=== PATIENT | female | born 1970 | race Caucasian/White ===

== ENCOUNTER 2016-11-19 19:11 | Emergency (ER) | payer OTHER ==
[~2016-11-19] VITALS: Wt 83.2 kg
[~2016-11-19 19:11] MED LIST: ATOR20TA38 PO; JANUMET
--- NOTE | 2016-11-19 21:46 | ERD ---
ER Documentation Chief Complaint Date/Time DATE: 11/19/16 TIME: 21:43 Chief Complaint r. knee pain s/p trip and fall HPI This a 46-year-old female who presents to the emergency department today complaining of right knee pain after slipping and falling down the stairs earlier this morning. Patient states that she has taken 2 Tylenol. States that she has hurt her knee in the past. States she has pain with walking. Denies any fevers or chills ROS All systems reviewed and are negative except as per history of present illness. Medications Home Meds Active Scripts Naproxen* (Naprosyn*) 500 Mg Tablet, 500 MG PO BID Y for PAIN AND/OR INFLAMMATION, #30 TAB Prov:RUMA TELLEZ PA-C 11/19/16 Hydrocodone/Acetaminophen ([place] 5-325 Tablet) 1 Each Tablet, 1 TAB PO Q6H Y for PAIN, #12 TAB Prov:RUMA TELLEZ PA-C 11/19/16 Reported Medications [Janumet] No Conflict Check 06/05/16 Atorvastatin Calcium* (Atorvastatin Calcium*) 20 Mg Tablet, 20 MG PO DAILY 09/09/13 Allergies Allergies: Coded Allergies: No Known Allergy (Verified , 09/12/10) Uncoded Allergies: NKDA (Allergy, Mild, 09/11/10) PMhx/Soc Medical and Surgical Hx: pt denies Surgical Hx History of Surgery: No Anesthesia Reaction: No Hx Neurological Disorder: No Hx Respiratory Disorders: No Hx Cardiac Disorders: No Hx Psychiatric Problems: No Hx Miscellaneous Medical Probl: Yes (DM II) Hx Alcohol Use: No Hx Substance Use: No Hx Tobacco Use: No Smoking Status: Never smoker Physical Exam Vitals Vital Signs Date Time Temp Pulse Resp B/P Pulse Ox O2 Delivery O2 Flow Rate FiO2 11/19/16 19:42 99.6 103 20 197/88 100 Physical Exam Const: No acute distress. Ambulating with mother's walker Head: Atraumatic Eyes: Normal Conjunctiva ENT: Normal External Ears, Nose and Mouth. Neck: Full range of motion..~ No meningismus. Resp: Clear to auscultation bilaterally Cardio: Regular rate and rhythm, no murmurs Skin: No petechiae or rashes MSK right knee with no obvious deformity. No effusion. No ecchymosis. Diffusely tender to palpation anterior and posterior aspects. Pain with range of motion from extension into flexion. Pulses 2+. Distal neurovascularly intact. Neur: Awake and alert Psych: Normal Mood and Affect Results 24 hrs Current Medications Medications (Trade) Dose Ordered Sig/Blayne Route PRN Reason Start Time Stop Time Status Last Admin Dose Admin Acetaminophen/ Hydrocodone Bitart ([place] (5/325)) 1 tab ONCE ONCE PO 11/19/16 22:00 11/19/16 22:01 DC 11/19/16 21:56 DIAGNOSTIC IMAGING REPORT Patient: EMMY KLEIN : 1970 Age: 46 Sex: F MR #: [id number] DOS: 11/19/16 0000 Ordering MD: RUMA TELLEZ PA-C Location: [facility] Room/Bed: PROCEDURE: CR Right Knee CLINICAL INDICATION: Pain TECHNIQUE: An AP, lateral, and an oblique radiographs were submitted. COMPARISON: None FINDINGS: Osseous Structures: The osseous elements appear well mineralized and intact. Join Spaces: The joint spaces are well maintained. There is a moderate joint effusion within the suprapatellar bursa.. Soft Tissues: The soft tissues appear unremarkable. IMPRESSION: Moderate joint effusion. Physician Giulia Date Time Electronically viewed and signed by Physician Giulia on 11/19/2016 22:25 RH/ CC: RUMA TELLEZ PA-C Procedures/MDM This a 46-year-old female who presents to the emergency department today complaining of right knee pain after mechanical fall when she slipped and fell down the stairs. Given that there was trauma patient is having pain with ambulation as well as range of motion I did obtain images. Per the radiology report images of the right knee show that the osseous elements appear well mineralized intact. Joint spaces are well-maintained. There is a moderate joint effusion within the suprapatellar bursa. Soft tissues appear unremarkable. Patient symptoms at this time most consistent with strain versus sprain versus contusion. There is no fracture dislocation. Patient is afebrile and otherwise well-appearing. There is no erythema or warmth and have low suspicion for septic joint or gout. I explained to the patient that she may need further evaluation by a injection specialist. Patient was given [place] here in the emergency department and pain improved. I will give her prescription for [place], Naprosyn for home. Patient was also given a knee immobilizer and crutches to help ambulate. She does not normally ambulate with a walker however she borrowed from her mother who just had replacement surgery At this time the patient is stable for discharge and outpatient management. Patient should follow up with their PCP in the next 1-2 days. They may return to the emergency department sooner for any persistent or worsening of symptoms. Patient understood and agreed with the plan. Departure Diagnosis: Primary Impression: Knee injury Encounter type: initial encounter Laterality: right Qualified Code: S89.91XA - Knee injury, right, initial encounter Condition: Fair RUMA TELLEZ PA-C Nov 19, 2016 21:46
[2016-11-19] MEDS ORDERED: HYDROCODONE/APAP (5/325) TAB PO ONE (22:00)
--- NOTE | 2016-11-19 22:26 | RADRPT ---
PROCEDURE: CR Right Knee CLINICAL INDICATION: Pain TECHNIQUE: An AP, lateral, and an oblique radiographs were submitted. COMPARISON: None FINDINGS: Osseous Structures: The osseous elements appear well mineralized and intact. Join Spaces: The joint spaces are well maintained. There is a moderate joint effusion within the sup rapatellar bursa.. Soft Tissues: The soft tissues appear unremarkable. IMPRESSION: Moderate joint effusion. Physician Giulia Date Time Electronically viewed and signed by Carline Diaz Physician on 11/19/2016 22:25 /
[2016-11-19] MEDS ORDERED: NAPR-260 PO (22:46)
[2016-11-19] MEDS ORDERED: HYDR-906 PO (22:46)
[2016-11-19 22:58] VITALS: BP 142/71; PULSE 81; RESP 20; TEMP 99
== END 2016-11-19 22:59 | disposition home or self-care (01) ==
LOC: FTE 19:11
DX: S89.91XA Unspecified injury of right lower leg, initial encounter (principal); E11.9 Type 2 diabetes mellitus without complications; W10.9XXA Fall (on) (from) unspecified stairs and steps, initial encounter; Y92.9 Unspecified place or not applicable; Z79.84 Long term (current) use of oral hypoglycemic drugs
CPT/HCPCS: 29505; 73562; Z7502; Z7610

== ENCOUNTER → 2016-12-25 | Outpatient (CLI) | payer OTHER ==
[~2016-12-25] MED LIST changes: +HYDR-906 PO; +NAPR-260 PO
--- NOTE | 2016-12-25 09:30 | RADRPT ---
PROCEDURE: XR right knee CLINICAL INDICATION: Knee pain TECHNIQUE: AP weightbearing, PA weightbearing, lateral weightbearing and sunrise views are availab le for review. COMPARISON: 11/19/2016 FINDINGS: There is mild osteoarthrosis involving the patellofemoral compartment. This is associated with minim al osteophytosis. There is otherwise normal mineralization, architecture and alignment. No fractures are identified. No osseous lesions are identified. The soft tissues are unremarkable. The previously described sup rapatellar joint effusion has resolved. IMPRESSION: Mild osteoarthrosis involving the patellofemoral compartment. Resolution of suprapatellar joint effusion. RPTAT: HGDB .Nato Jessica MD, Date Time Electronically viewed and signed by .Nato Jessica MD, on 12/25/2016 09:29 .B/
== END | disposition home or self-care (01) ==
LOC: HKI 09:00
PROVIDERS: ATTEND Orthopaedic Surgery
DX: M25.561 Pain in right knee (principal); M17.11 Unilateral primary osteoarthritis, right knee
CPT/HCPCS: G0463

== ENCOUNTER → 2017-05-06 | Outpatient (CLI) | payer OTHER ==
--- NOTE | 2017-05-07 03:43 | HKNOTE ---
DATE OF SERVICE: 05/06/2017 MAIN COMPLAINT: Right knee pain. HISTORY OF PRESENT ILLNESS: This is a 46-year-old female, who is complaining of pain in the right knee for the last several months. The pain occurred after a fall. She has complaints of locking and catching of the right knee. She has instability. She has used mxlj-[id number]-lxnzzlq brace, which has not provided any pain relief. She takes ycwk-gvy-gbcpzfa ibuprofen with minimal pain relief. The pain is constant and aggravated by walking. She denies any hip or groin pain. She denies any back pain. She has no other complaints. PHYSICAL EXAMINATION: GENERAL: Well developed, well nourished female in no acute distress. Alert and oriented x4. Gait: Antalgic gait. Right knee: Neutral alignment. Tender to palpation over the medial joint line. Nontender over the lateral joint line. 0-130 degrees range of motion. Positive Memo's. Negative Tacos's. Negative anterior drawer. Negative posterior drawer. Stable to varus, valgus stress. 5/5 quadriceps, hamstrings, tibialis anterior, gastroc soleus, extensor hallucis longus. Sensation intact to light touch throughout the lower extremities. Palpable dorsalis pedis pulse. IMAGING PROCEDURE: MRI of the right knee: There is a horizontal tear of the posterior horn of the medial meniscus. There is no tear identified in the lateral meniscus. The anterior and posterior cruciate ligaments are intact. The collateral ligaments are intact. ASSESSMENT: A 46-year-old female, with a right knee posterior horn medial meniscus tear who has failed nonoperative management. We will obtain authorization for right knee arthroscopy with partial medial meniscectomy. I discussed the risks associated with surgery, which include, but are not limited to, infection, deep venous thrombosis, pulmonary embolism, damage to neurovascular structures, heart attack, stroke, bleeding, progression of arthritis, need for knee replacement and future continued pain, and even . The patient will return following medical clearance. Dictated By: Benny Amador MD /[email or web address]/ /Document#: [id number]
== END | disposition home or self-care (01) ==
LOC: HKI 15:06
PROVIDERS: ATTEND Orthopaedic Surgery Adult Reconstructive Orthopaedic Surgery
DX: S83.241D Other tear of medial meniscus, current injury, right knee, subsequent encounter (principal); W19.XXXD Unspecified fall, subsequent encounter
CPT/HCPCS: G0463

== ENCOUNTER → 2017-06-05 | Outpatient (CLI) | payer OTHER ==
--- NOTE | 2017-06-06 12:15 | PREOPHP ---
DATE OF ADMISSION: 06/05/2017 HISTORY: This is a 46-year-old female who was previously evaluated in this office with a right knee posterior horn medial meniscus tear. The risks, benefits and alternatives to surgical intervention were discussed with the patient and informed consent was obtained. The risks of surgery include but are not limited to infection, deep vein thrombosis, pulmonary embolism, damage to neurovascular stru ctures, continued pain, progression of arthritis, need for revision surgery, need for knee replaceme nt, heart attack, stroke, risks associated with anesthesia and even . The patient understood al l the risks and would like to proceed with surgery. She is scheduled for a right knee arthroscopy on 06/11/2017. Dictated By: JAVIER CANO/ALIX Conf#: [id number] DID#: [id number]
== END | disposition home or self-care (01) ==
LOC: HKI 13:36
PROVIDERS: ATTEND Orthopaedic Surgery Adult Reconstructive Orthopaedic Surgery
DX: Z01.818 Encounter for other preprocedural examination (principal); M23.221 Derangement of posterior horn of medial meniscus due to old tear or injury, right knee
CPT/HCPCS: G0463

== ENCOUNTER 2017-06-11 08:08 | Day surgery (SDC) | payer OTHER ==
[~2017-06-11] VITALS: Ht 157.5 cm; Wt 78.6 kg
[2017-06-11] VITALS (17 sets, daily range): BP systolic 132–169; BP diastolic 74–89; PULSE 68–90; RESP 15–20; Ht 157.5 cm; Wt 78.6 kg
[2017-06-11] MEDS ORDERED: EMPA25TA PO (08:27)
[2017-06-11] MEDS ORDERED: SITA1TAB5 PO (08:27)
[2017-06-11] MEDS ORDERED: BALS750C6 PO (08:28)
[2017-06-11] MEDS ORDERED: ATOR40TA68 PO (08:28)
[2017-06-11] MEDS ORDERED: MEPERIDINE 25 MG INJ IV PRN (08:30)
[2017-06-11] MEDS ORDERED: FENTAnyl 50 MCG/ML VIAL IV PRN ×2 (08:30)
[2017-06-11] MEDS ORDERED: METOCLOPRAMIDE 10 MG INJ IV PRN (08:30)
[2017-06-11] MEDS ORDERED: ONDANSETRON 4 MG INJ IV PRN ×2 (08:30→11:30)
[2017-06-11] MEDS ORDERED: DIPHENHYDRAMINE 50 MG INJ IV PRN (08:30)
[2017-06-11] MEDS ORDERED: HYDROmorphONE (0.2 MG/ML) 10ML SYG IV PRN (08:30)
[2017-06-11] MEDS ORDERED: CELECOXIB 200 MG CAP PO SCH (09:00)
[2017-06-11] MEDS ORDERED: ONDANSETRON 4 MG IV X 1 DOSE IV ONE (09:00)
[2017-06-11] MEDS ORDERED: ACETAMINOPHEN 1000MG/100ML IV 100 ML IVPB ONE ×2 (09:00)
[2017-06-11] MEDS ORDERED: LACTATED RINGER'S 1,000 ML IV* SCH (09:00)
[2017-06-11] MEDS ORDERED: DEXAMETHASONE 4 MG/ML 1 ML INJ IV ONE ×2 (09:00)
[2017-06-11] MEDS ORDERED: CEFAZOLIN 2 GM/50 ML (PMX) 50 ML IVPB SCH (09:00)
[2017-06-11] MEDS ORDERED: LACTATED RINGER'S 1,000 ML IV SCH (09:00)
[2017-06-11] MEDS ORDERED: CEFAZOLIN 2GM/50 ML (PMX) 50 ML X1 BEFORE INCISION IVPB ONE (09:00)
[2017-06-11] MEDS ORDERED: oxyCODONE (CR) 10 MG TAB [oxyCONTIN] X1 DOSE PO ONE (09:00)
[2017-06-11] MEDS ORDERED: oxyCODONE (CR) 10 MG TAB [oxyCONTIN] PO SCH (09:00)
[2017-06-11] MEDS ORDERED: LANSOPRAZOLE 30 MG CAP PO ONE ×2 (09:00)
[2017-06-11] MEDS ORDERED: CELECOXIB 400 MG PO X1 DOSE PO ONE (09:00)
[2017-06-11] MEDS ORDERED: ONDANSETRON 4 MG INJ IV ONE (09:00)
--- NOTE | 2017-06-11 09:14 | HPN ---
Date/Time of Note Date/Time of Note DATE: 06/11/17 TIME: 09:13 Interval H&P Admission Note Pt. seen H&P reviewed: No system changes PHONG CAMPA PA-C Jun 11, 2017 09:14
[2017-06-11] MEDS ORDERED: LIDOCAINE 1% (STERILE-PAK) 30 ML INJ ONE (10:54)
[2017-06-11] MEDS ORDERED: FENTAnyl 50 MCG/ML VIAL ONE (11:06)
[2017-06-11] MEDS ORDERED: HYDROCODONE/APAP (5/325) TAB PO PRN (11:30)
[2017-06-11] MEDS ORDERED: ACETAMINOPHEN 1000MG/100ML IV 100 ML IVPB SCH (11:30)
[2017-06-11] MEDS ORDERED: HYDROCODONE/APAP (10/325) TAB PO PRN (11:30)
[2017-06-11] MEDS ORDERED: morphine 10 MG INJ IV PRN (11:30)
[2017-06-11] MEDS ORDERED: METHYLPREDNISOLONE ACET 80 MG/ML 1 ML ONE (11:31)
[2017-06-11] MEDS ORDERED: SUGAMMADEX SODIUM 200 MG/2 ML VIAL IV ONE (11:48)
[2017-06-11] MEDS ORDERED: LIDOCAINE 2% (SDV) 5 ML INJ ONE (11:48)
[2017-06-11] MEDS ORDERED: CEFAZOLIN 1 GM INJ ONE (11:48)
[2017-06-11] MEDS ORDERED: SUCCINYLCHOLINE CHLORIDE 100 MG/5 ML SYG IV ONE (11:48)
[2017-06-11] MEDS ORDERED: PROPOFOL 20 ML ONE (11:48)
[2017-06-11] MEDS ORDERED: ROCURONIUM 50 MG INJ ONE (11:48)
--- NOTE | 2017-06-11 11:58 | SIPON ---
Date/Time of Note Date/Time of Note DATE: 06/11/17 TIME: 11:55 Operative Report Preoperative Diagnosis Right knee posterior horn medial meniscus tear Postoperative Diagnosis same Operation/Procedure Performed Right knee arthroscopic partial medial menisectomy Right knee medial femoral chondroplasty Right knee steroid injection Surgeon Benny Amador MD occupational therapist assistants none Anesthesia: general Estimated blood loss: none Transfusion Required none Specimen none Grafts/Implants none Complications none BENNY AMADOR MD Jun 11, 2017 11:58
--- NOTE | 2017-06-11 12:25 | OPR ---
DATE OF OPERATION: 06/11/2017 PREOPERATIVE DIAGNOSIS: Right knee posterior horn medial meniscus tear. POSTOPERATIVE DIAGNOSES 1. Right knee patellofemoral chondromalacia. 2. Right knee posterior horn medial meniscus tear. 3. Right knee medial femoral condyle chondromalacia. OPERATIVE PROCEDURE PERFORMED: 1. Right knee arthroscopic partial medial meniscectomy. 2. Right knee medial femoral chondroplasty. 3. Right knee corticosteroid injection. SURGEON: Benny Amador MD. ROCKET MOTOR TESTER: None. ANESTHESIOLOGIST: Dr. Winters. ANESTHESIA: General. ESTIMATED BLOOD LOSS: Minimal. COMPLICATIONS: None. SPECIMENS: None. DISPOSITION: To PACU in stable condition. TOURNIQUET TIME: 19 minutes at 250 mmHg. INDICATION FOR PROCEDURE: This is a 46-year-old female with a right knee medial meniscus tear who h ad failed nonoperative management. Risks, benefits, alternatives of surgical intervention were disc ussed with the patient and informed consent was obtained. DETAILS OF PROCEDURE: The patient was met in the preoperative suite and the correct operative site was confirmed and marked. She was then brought into operating room. After induction of general ane sthesia, she was placed in the supine position on the operating room table. A tourniquet was applie d to the right upper thigh, and the right lower extremity was prepped and draped in the usual steril e fashion. Before starting, a timeout was taken to identify the correct operative site and confirm the preoperative antibiotics consisting of 1 gram of IV Ancef was administered. At this point, the right leg was then elevated and exsanguinated and the tourniquet was insufflated for the above-noted time. A small incision was made for the lateral portal. The arthroscope was then introduced and the keyes lofemoral joint was then visualized. Chondromalacia of the patellofemoral joint was seen. The arth roscope was then introduced into the patellofemoral joint anterior to the medial gutter, no evidence of loose bodies or plica were seen. The arthroscope was then introduced into the medial compartmen t, the spinal needle was then used to determine the proper orientation for the medial portal and a s mall incision was made followed by the insertion of the probe. A horizontal tear of the posterior h orn of the medial meniscus was then identified. Grade III chondromalacia of the medial femoral cond yle was also seen. The sucker shaver was then introduced into the medial compartment and a partial medial meniscectomy along with the medial femoral chondroplasty was performed. Next, arthroscope wa s then introduced into the intercondylar notch and the anterior and posterior cruciate ligaments wer e visualized and noted to be intact. The arthroscope was then introduced into the lateral compartme nt. No tear was seen in the lateral compartment, no evidence of chondromalacia was evident. Instru ments were then removed. There was no evidence of breakage. All counts were correct and injection consisting of 1 mL of Depo along with 3 mL of 1% lidocaine was then distilled into the joint. The p ortal sites were closed using a 3-0 nylon in interrupted ifriec-rp-fjvxe fashion. Sterile dressing and a toe to groin Madan wrap were applied. There were no complications. She was transferred to the postoperative care unit in stable condition. POSTOPERATIVE CARE: She will be weightbearing as tolerated. She will receive medications for pain control. She will receive crutches for ambulation. She will be discharged home and follow up in [facility] office within 10 to 14 days. Dictated By: BENNY CANO/ALIX Conf#: [id number] DID#: [id number]
[2017-06-11] MEDS: HYDROmorphONE (0.2 MG/ML) 10ML SYG IV PRN ×2 (12:26→12:50)
== END 2017-06-11 14:33 | disposition home or self-care (01) ==
LOC: SDS 08:08
PROVIDERS: ATTEND Orthopaedic Surgery Adult Reconstructive Orthopaedic Surgery
DX: S83.241A Other tear of medial meniscus, current injury, right knee, initial encounter (principal); M94.261 Chondromalacia, right knee; X58.XXXA Exposure to other specified factors, initial encounter; Y92.89 Other specified places as the place of occurrence of the external cause; Y93.89 Activity, other specified; E66.01 Morbid (severe) obesity due to excess calories; E11.9 Type 2 diabetes mellitus without complications
CPT/HCPCS: 29881; 82962; 84703; J0131; J0690; J1040; J1100; J1170; J2405; J3010; Z7512; Z7610

== ENCOUNTER → 2017-06-24 | Outpatient (CLI) | payer OTHER ==
[~2017-06-24] MED LIST changes: -ATOR20TA38 PO; +ATOR40TA68 PO; +BALS750C6 PO; +EMPA25TA PO; -HYDR-906 PO; -JANUMET; -NAPR-260 PO; +SITA1TAB5 PO
--- NOTE | 2017-06-25 03:25 | HKNOTE ---
DATE OF SERVICE: 06/24/2017 CHIEF COMPLAINT: Followup. HISTORY OF PRESENT ILLNESS: This is a 46-year-old female who is almost 2 weeks status post right knee arthroscopy with partial medial menisectomy. She is doing well. She does not use any assist devices. She takes ibuprofen for pain control. She denies any calf pain, shortness of breath. She denies any locking , catching or instability. She has no complaints. RIGHT KNEE: Incisions have healed. The sutures are intact. No drainage. Calf is soft, nontender with negative Homans, 5/5 function of quadriceps, hamstrings, tibialis anterior, gastrocsoleus. IMPRESSION: This is a 46-year-old female status post right knee arthroscopy. PLAN: She can continue to be weightbearing as tolerated. She can take ibuprofen for pain control. She will perform physical therapy. She will follow up in 3 months for reevaluation. Dictated By: JAVIER CANO/ALIX Conf#: [id number] DID#: [id number]
== END | disposition home or self-care (01) ==
LOC: HKI 14:19
PROVIDERS: ATTEND Orthopaedic Surgery Adult Reconstructive Orthopaedic Surgery
DX: Z09 Encounter for follow-up examination after completed treatment for conditions other than malignant neoplasm (principal); Z96.651 Presence of right artificial knee joint
CPT/HCPCS: G0463

== ENCOUNTER → 2017-10-06 | Outpatient (CLI) | END | disposition home or self-care (01) ==

== ENCOUNTER 2018-06-12 10:09 | Day surgery (SDC) | END 2018-06-12 15:50 | disposition home or self-care (01) ==